=== PATIENT | female | born 1965 | race Caucasian/White ===

== ENCOUNTER → 2016-08-31 | Outpatient (CLI) | payer BC, OTHER ==
[~2016-08-31] MED LIST: AMOX500C5 PO; BENZ-22 PO; BUPR150T9 PO; CLIN-79 PO; DEXT10TA24; FAMC500T17 PO; FLUC150T PO; METH10TA3 PO; PRED20TA PO; PRM25T PO; PROP10TA8 PO; TOPI100T38 PO
--- NOTE | 2016-08-31 20:09 | Urgent Care T Sheet Gen (E) ---
Intake General Temperature (Fahrenheit): 97.6 Pulse: 116 Blood Pressure Systolic: 124 Blood Pressure Diastolic: 89 Respirations: 20 SPO2: 98 Chief Complaint: cough and sinus congestion Source: Patient History of Present Illness Initial Comments Pt notes sinus congestion and cough for the last 2 weeks. No fever. Has had sore throat with drainage. Taking OTC meds with no relief. Allergies: Coded Allergies: oseltamivir (Unverified Allergy, Severe, SWELLING THROAT SHUT, 01/26/15) trimethoprim (Unverified Allergy, Mild, ITCHING NAUSEA, 01/26/15) amoxicillin (Unverified Allergy, Unknown, STOMACH BLOATLING , 01/26/15) cefdinir (Unverified Allergy, Unknown, HIVES, 01/26/15) cephalexin (Unverified Allergy, Unknown, ITCHING, 01/26/15) ciprofloxacin (Unverified Allergy, Unknown, THROAT AND LIPS SWELL, 01/26/15 ) clarithromycin (Unverified Allergy, Unknown, HIVES, THROAT SWELLING, ) clavulanic acid (Unverified Allergy, Unknown, STOMACH BLOATLING , 01/26/15 ) doxycycline (Unverified Allergy, Unknown, BLOATING,RASH, 01/26/15) levofloxacin (Unverified Allergy, Unknown, ITCHING, THROAT SWELLING, ) montelukast (Unverified Allergy, Unknown, HALLUCINATIONS, 01/26/15) prochlorperazine (Unverified Allergy, Unknown, P[place]IN[place] TWISTING, 01/26/15 ) sulfamethoxazole (Unverified Allergy, Unknown, HIVES, THROAT SWELLING, ) Home Meds Active Scripts Fluconazole (Diflucan)150 Mg [id number] Mg PO DAILY #2 TAB Prov:GUILHERME WHEELER 08/31/16 Amoxicillin (Amoxil)500 Mg Capsule2 Cap PO BID Infection #40 CAP Ref 0 Prov:GUILHERME WHEELER 08/31/16 Amoxicillin (Amoxil)500 Mg [id number] Mg PO BID Infection #14 CAP Ref 0 Prov:GLORIA JIMENEZ 06/23/16 Benzonatate (Tessalon Perles)100 Mg Cwibheb641 Mg PO HS #20 CAP Prov:LIZBET JOHN APRN () 04/20/16 Fluconazole (Diflucan)150 Mg Fixojz103 Mg PO DAILY #2 TAB Prov:NICOLAS JOHNNIRAN Barron APRN () 04/20/16 Promethazine Hcl (Phenergan)25 Mg Tab25 Mg PO Q4H PRN NAUSEA/VOMITING #30 TAB Prov:BUFFY STILL MD 01/26/15 Clindamycin HCl 300 Mg Esfkohu030 Mg PO QID #28 CAP Ref 1 Prov:BUFFY STILL MD 01/26/15 Reported Medications Methylphenidate HCl (Ritalin)10 Mg Yrxyii89 Mg PO BID 01/26/15 Bupropion HCl (Wellbutrin SR)150 Mg Tablet.er150 Mg PO TID 06/23/14 Topiramate (Topamax)100 Mg Aqdimo341 Mg PO BID 06/23/14 Respiratory Constitutional Symptoms: See HPI EENTM: See HPI Nose Congestion Throat pain Respiratory: No No symptoms reported, See HPI CoughNo Orthopnea, No Short of breath, No Stridor, No Wheezing, No Other Cardiovascular: No symptoms reported Gastrointestinal/Abdominal: No symptoms reported Skin: No symptoms reported All Other Systems Reviewed Remaining Systems: All other systems reviewed with negative findings Past Oejvgrx-Frbebk-Equoig Hx Patient's Social History Alcohol Use: Denies Use Smoking Status: Never smoker Recent foreign travel: No Surgeries/Hospitalizations Hospitalization/Surgery Hx: C-SECTIONS, LAP, RT FOOT SURGERY Respiratory Respiratory History: None Cardiovascular Cardiovascular History: Palpitations Reproductive System Sexually Transmitted Diseases: No Gastrointestinal GI/Endocrine History: None Diabetes Diabetes: No HEENT Impaired Vision: None Hearing Impaired: None Psychosocial Behavior Disorders: Depression Physical Exam Physical Exam General Appearance: WD/WN No apparent distress Eyes, Ears, Nose, Throat Ex: PERRL/EOMI Normal ENT inspection Neck Exam: Non tender Full range of motion Normal inspection Normal thyroid Respiratory Exam: Lungs clear Normal breath sounds Cardiovascular Exam: Regular rate, rhythm No edema Skin Exam: Normal color Warm/dry/intact Departure Urgent Care Impression Chief Complaint: cough and sinus congestion Impression: Primary Impression: Acute maxillary sinusitis Qualified Code: J01.00 - Acute maxillary sinusitis, unspecified Departure Disposition: HOME OR SELF-CARE Condition: Stable Referrals: SANDY LIGHT (PCP) Additional Instructions: Take Amoxicillin as prescribed below. Take diflucan as directed due to h/o vaginal yeast infections when given antibiotics Follow-up with PCP in -7 to recheck. return to ER or UC if symptoms get worse or further concern Discharge instructions verbally given to Patient. Patient verbalizes understanding of discharge instructions.. Scripts Fluconazole (Diflucan)150 Mg Ssrfep859 Mg PO DAILY #2 TAB Prov:GUILHERME WHEELER 08/31/16 Amoxicillin (Amoxil)500 Mg Capsule2 Cap PO BID Infection #40 CAP Ref 0 Prov:GUILHERME WHEELER 08/31/16 End of report . GUILHERME WHEELER Aug 31, 2016 20:09
[2016-09-01 21:59] VITALS: BP 124/89
== END ==
LOC: MHUC 19:27
PROVIDERS: ATTEND Physician Assistant
DX: J01.00 Acute maxillary sinusitis, unspecified (principal)
CPT/HCPCS: 99213

== ENCOUNTER → 2016-11-01 | Outpatient (CLI) | payer BC ==
[2016-11-01 12:25] VITALS: BP 124/84
== END ==
LOC: MHUC 11:34
PROVIDERS: ATTEND Physician Assistant
DX: B02.9 Zoster without complications (principal)
CPT/HCPCS: 99213